=== PATIENT | female | born 2000 | race Two or more races ===

== ENCOUNTER 2022-12-04 04:47 | Emergency (ER) | payer MEDICAID, OTHER ==
[~2022-12-04] VITALS: Ht 152.4 cm; Wt 52.0 kg
[2022-12-04] MEDS ORDERED: ACETAMINOPHEN 500 MG TAB PO ONE (05:15)
[2022-12-04 05:48] LABS: Basophils # (auto) 0 10 ^3/uL (0-0.2); Basophils % (auto) 0.3 % (0.0-2.0); Eosinophils # (auto) 0.2 10 ^3/uL (0-0.8); Eosinophils % (auto) 1.6 % (0.0-7.0); Hemoglobin 14.6 g/dL (12.2-16.2); Lymphocytes # (auto) 1.7 10 ^3/uL (0.4-5.4); Lymphocytes % (auto) 11.7 % (10.0-50.0); Mean Corpuscular Hemoglobin 30.2 pg (28.0-32.0); Mean Corpuscular Hgb Conc. 33.9 g/dL (32.0-36.0); Monocytes # (auto) 0.9 10 ^3/uL (0-1.3); Monocytes % (auto) 6.2 % (0.0-12.0); Neutrophils # (auto) 11.3 10 ^3/uL (1.6-8.6); Neutrophils % (auto) 80.2 % (37.0-80.0); Red Blood Cells 4.83 10^6/uL (4.0-5.20); Red Cell Distribution Width 13.2 % (11.8-14.3); White Blood Cell 14.1 10^3/uL (4.4-10.8)
[2022-12-04 06:00] LABS: INR 1.01 (0.9-1.15); Prothrombin Time 10.6 sec (9.3-11.8)
[2022-12-04 06:03] LABS: Alanine Aminotransferase 13 U/L (7-40); Alkaline Phosphatase 80 U/L (46-116); Calcium 8.9 mg/dL (8.5-10.1); Carbon Dioxide 22 mmol/L (20-30); Chloride 105 mmol/L (98-107); Glucose 111 mg/dL (74-106); Potassium 3.5 mmol/L (3.5-5.1)
[2022-12-04 06:04] LABS: Albumin 4.3 g/dL (3.2-4.8); Anion Gap 10 (5-15); Aspartate Aminotransferase 15 U/L (13-40); BUN/Creatinine Ratio 9.2 (10.0-20.0); Bilirubin, Total 0.5 mg/dL (0.2-1.0); Blood Urea Nitrogen 6 mg/dL (9-23); Sodium 137 mmol/L (136-145); Total Protein 6.8 g/dL (5.7-8.2)
[2022-12-04 06:48] LABS: Urine Bacteria FEW /hpf (None Seen); Urine Blood Negative /uL (Negative); Urine Clarity HAZY (Clear); Urine Color Yellow (Yellow); Urine Mucus FEW (None Seen); Urine Protein, UAD Negative (Negative); Urine Specific Gravity 1.018 (1.001-1.035); Urine Urobilinogen Normal (Negative); Urine WBC 3 /hpf (0 - 5)
[2022-12-04] MEDS ORDERED: AZITHROMYCIN 250 MG TAB PO ONE (10:45)
[2022-12-04] MEDS ORDERED: IBUPROFEN 600 MG TAB PO ONE (10:45)
[2022-12-04] MEDS ORDERED: predniSONE 20 MG TAB PO ONE (11:00)
[2022-12-04 11:24] LABS: Rapid Influenza A Negative (Negative); Rapid Influenza B Negative (Negative)
[2022-12-04 11:32] LABS: COVID19 ANTIGEN SOFIA FIA NEGATIVE (NEGATIVE)
[2022-12-04] MEDS ORDERED: PROM1SOL4 PO (12:05)
[2022-12-04] MEDS ORDERED: PRED20TA2 PO (12:05)
[2022-12-04] MEDS ORDERED: AZIT200S PO (12:05)
[2022-12-04] MEDS ORDERED: IBU600T PO (12:05)
[2022-12-04 12:41] VITALS: BP 105/65; PULSE 97; RESP 17; TEMP 98.9; O2SAT 97
== END 2022-12-04 12:43 | disposition home or self-care (01) ==
LOC: ER 04:47
DX: J20.9 Acute bronchitis, unspecified (principal); R07.89 Other chest pain; Z79.899 Other long term (current) drug therapy; Z20.822 Contact with and (suspected) exposure to COVID-19
CPT/HCPCS: 36415; 71045; 80053; 81001; 83880; 84443; 84484; 85025; 85610; 85730; 87426; 87804; 93005; 99285; J7512